=== PATIENT | male | born 1960 | race Caucasian/White ===

== ENCOUNTER 2024-04-24 09:01 | Emergency (ER) | payer BC, SELFPAY ==
[2024-04-24 09:02] VITALS: BP 151/101
--- NOTE | 2024-04-24 10:33 | ED.GENMED ---
History of Present Illness
General
Chief Complaint: Musculo-Skeletal Complaint
Source: patient and spouse
Exam Limitations: none
Time Seen by Provider: 04/24/24 09:27
Nursing documentation reviewed up to this point in time: agreed with
History of Present Illness
History of Present Illness:
64-year-old male with Joe history of hypertension hyperlipidemia presenting to the emergency department today with concerns of right-sided knee discomfort over the past few days initially felt a slight pop to his knee he has been able to walk
but has noticed worsening discomfort and swelling over the past day or so. Difficulty ambulating today. No fevers.
Past History
Past History
ED Past Medical History: Arrthythmia (SVT), HTN and Hypercholesterolemia
ED Past Surgical History: None
Social History
Tobacco: Non-smoker
Alcohol: None
Review of Systems
Review of Systems
Allergies reviewed?: Yes
All Other Systems: ROS reviewed and negative except as documented in HPI and ROS
Phy Exam
Physical Exam
Physical Exam:
GENERAL: Alert , in no apparent distress
EYE: pupils equal and reactive
NECK: Supple, no significant adenopathy.
ENT: o/p clr, mmm.
CARDIAC: Regular rate and rhythm .
LUNGS: Clear breath sounds bilaterally, no acute respiratory distress, no wheezes/rales/rhonchi
ABDOMEN: Soft, without focal tenderness, no r/g, no cvat
NEUROLOGICAL: Alert and oriented, no focal neuro deficits
SKIN: Warm and dry, skin intact.
MUSCULOSKELETAL: Swelling to the right knee good range of motion no redness or warmth, well perfused.
PSYCH: Normal and appropriate interaction.
Course
Orders/Labs/Results
Orders:
Orders
04/24/24 09:06
CR Knee- Right 4 Or More View* Urgent
Reason For Exam: pain
04/24/24 10:31
Crutches-Treatment ONCE
Knee Immobilizer Right-Treatme ONCE
04/24/24 10:32
Oxycodone/Acetaminophen [Percocet 5/325] 1 tablet PO NOW STA
Vital Signs
Initial and Last Documented VS:
Initial Vital Signs
Temp Pulse Resp BP Pulse Ox
98.3 F 69 20 151/101 98
04/24/24 09:02 04/24/24 09:02 04/24/24 09:02 04/24/24 09:02 04/24/24 09:02
Last Documented Vital Signs
Temp Pulse Resp BP Pulse Ox
98.3 F 69 20 151/101 98
04/24/24 09:02 04/24/24 09:02 04/24/24 09:02 04/24/24 09:02 04/24/24 09:02
MDM/Problems Addressed
MDM/Problems Addressed:
63-year-old male presenting to the emergency department today with with concerns of a few days of right-sided knee pain felt a small pop a few days ago symptoms gradually worsening but increasing today no redness or warmth no fevers no systemic
symptoms. No joint laxity good range of motion does have some increased discomfort with full extension x-ray without signs of acute injury. Patient was placed in a knee immobilizer with potential internal knee derangement will follow-up closely
with Ortho return precautions given.
*Critical Care Note
Total Time (30-74mins, 75-104mins- exclusive of procedures): Not Applicable
ED Attending Note
-
Portions of this chart may have been created with voice recognition software.� Occasional wrong word or��sound alike� substitutions may have occurred due to the inherent limitations of voice recognition software.
Discharge Plan
Departure
Patient Disposition: Home (Routine Discharge)
Date of Disposition: 04/24/24
Time of Disposition: 11:22
Patient with high blood pressure during this ER visit?: No
Condition: Good
Covid-19: Not Applicable
Discharge Problem:
Injury of knee, right
Instructions: Knee Sprain (DC)
Prescriptions:
New
oxycodone-acetaminophen [Endocet] 5-325 mg tablet
1 tab PO Q6H PRN (Reason: Pain) Qty: 7 0RF
No Action
losartan
25 mg PO HS
metoprolol succinate
25 mg PO DAILY AT 0700
Wellbutrin XL
300 mg PO DAILY
aspirin 81 mg Tablet,Delayed Release (Dr/Ec)
81 mg PO DAILY Qty: 30 0RF
atorvastatin 40 mg tablet
40 mg PO HS Qty: 30 0RF
Referrals:
Aj Little DO [Family Provider] -
Nicho Vuong MD [Active] - Follow up in 5-7 days
Activity Restrictions/Additional Instructions:
You came to the emergency department today with concerns of knee injury. Please follow-up with orthopedics and in the meantime rest ice and elevate. He can take the stronger pain medication as needed for breakthrough pain. Return to the emergency
department for any worsening, new or concerning symptoms.
Interventions
Interventions:
*Risk Screen - Suicide Last Done: 04/24/24 09:02
*General Assessment Last Done: 04/24/24 09:02
*Neglect/Abuse Screening Last Done: 04/24/24 09:02
ED-Musculoskeletal Assessment Last Done: 04/24/24 10:50
Discharge Date and Time
Print Language: [place]
[2024-04-24] MEDS: PERCOCET 5/325 1 TABLET PO (10:45)
== END 2024-04-24 11:50 | disposition home or self-care (01) ==
LOC: EMR 09:01
PROVIDERS: EMERGENCY PHYSICIAN Emergency Medicine; FAMILY PHYSICIAN Student in an Organized Health Care Education/Training Program; REFERRING PHYSICIAN Orthopaedic Surgery
DX: S89.91XA Unspecified injury of right lower leg, initial encounter (principal); X58.XXXA Exposure to other specified factors, initial encounter; E78.00 Pure hypercholesterolemia, unspecified; I10 Essential (primary) hypertension
CPT/HCPCS: 99283; 73564

== ENCOUNTER → 2024-09-06 13:42 | Outpatient (REF) | payer BC, SELFPAY | LOC: HWRAD 13:42 | PROVIDERS: ATTENDING PHYSICIAN Student in an Organized Health Care Education/Training Program | DX: R19.06 Epigastric swelling, mass or lump (principal) | CPT/HCPCS: 74018 ==

== ENCOUNTER → 2024-09-15 14:09 | Outpatient (REF) | payer BC, SELFPAY | LOC: HWRAD 14:09 | PROVIDERS: ATTENDING PHYSICIAN Student in an Organized Health Care Education/Training Program | DX: R19.06 Epigastric swelling, mass or lump (principal) | CPT/HCPCS: 76705 ==

== ENCOUNTER → 2025-05-23 09:01 | Outpatient (REF) | payer BC, SELFPAY | LOC: RAD 09:01 | PROVIDERS: ATTENDING PHYSICIAN Student in an Organized Health Care Education/Training Program | DX: I71.20 Thoracic aortic aneurysm, without rupture, unspecified (principal) | CPT/HCPCS: 71275; 74175; Q9967 ==